=== PATIENT | male | born 1975 | race Caucasian/White ===

== ENCOUNTER 2021-02-11 10:45 | Emergency (ER) | payer SELFPAY ==
[~2021-02-11] VITALS: Ht 180.3 cm; Wt 83.9 kg
== END 2021-02-11 12:20 | disposition home or self-care (01) ==
LOC: ER 10:45
DX: S20.212A Contusion of left front wall of thorax, initial encounter (principal); S30.1XXA Contusion of abdominal wall, initial encounter; F17.200 Nicotine dependence, unspecified, uncomplicated; Y00.XXXA Assault by blunt object, initial encounter
CPT/HCPCS: 99283

== ENCOUNTER 2022-11-08 20:20 | Emergency (ER) | payer OTHER ==
[~2022-11-08] VITALS: Ht 180.3 cm; Wt 93.0 kg
[2022-11-08] MEDS ORDERED: ONDA4ODT MM ×2 (22:59→23:24)
== END 2022-11-08 23:30 | disposition home or self-care (01) ==
LOC: ER 20:20
DX: S82.831A Other fracture of upper and lower end of right fibula, initial encounter for closed fracture (principal); V00.111A Fall from in-line roller-skates, initial encounter; Y93.51 Activity, roller skating (inline) and skateboarding; Z87.891 Personal history of nicotine dependence
CPT/HCPCS: 73610; 99283-25; A9270